=== PATIENT | female | born 1990 | race Asian ===

== ENCOUNTER 2018-08-21 11:47 | Emergency (ER) | payer OTHER ==
[~2018-08-21] VITALS: Ht 152.4 cm; Wt 63.5 kg
[2018-08-21 11:51] VITALS: BP 148/73; Ht 152.4 cm; Wt 63.5 kg
== END 2018-08-21 13:41 | disposition home or self-care (01) ==
LOC: ED 11:47
DX: S93.402A Sprain of unspecified ligament of left ankle, initial encounter (principal); W22.8XXA Striking against or struck by other objects, initial encounter; Y93.89 Activity, other specified; Y92.89 Other specified places as the place of occurrence of the external cause; Y99.8 Other external cause status